=== PATIENT | male | born 1960 | race Caucasian/White ===

== ENCOUNTER 2017-04-05 11:25 | Inpatient (IN) | payer MEDICARE ==
[~2017-04-05] VITALS: Ht 180.3 cm; Wt 74.8 kg
[2017-04-05 12:37] LABS: HEMOGLOBIN 16.2 gm/dl (14.0-17.5); RED BLOOD COUNT 4.85 M/UL (4.20-5.50); WHITE BLOOD COUNT 6.5 K/UL (4.5-11.0)
[2017-04-05 13:01] LABS: BUN/CREATININE RATIO 20 (0-10)
[2017-04-05] MEDS ORDERED: PRAVASTATIN SOD20 MG PO (18:00)
[2017-04-05] MEDS ORDERED: ISOSORBIDE DINI30 MG PO (18:00)
[2017-04-05] MEDS ORDERED: SPIRONOLACTONE25 MG PO (18:01)
[2017-04-05] MEDS ORDERED: COREG 3.125M3.125 MG PO (18:01)
[2017-04-05] MEDS ORDERED: ENTRESTO PO (18:02)
[2017-04-05] MEDS ORDERED: ASPIR-LOW81 MG PO (18:04)
[2017-04-06 04:06] LABS: HEMOGLOBIN 17.3 gm/dl (14.0-17.5); RED BLOOD COUNT 5.23 M/UL (4.20-5.50); WHITE BLOOD COUNT 5.4 K/UL (4.5-11.0)
[2017-04-06 04:29] LABS: BUN/CREATININE RATIO 24 (0-10)
[2017-04-07 05:44] LABS: HEMOGLOBIN 17.5 gm/dl (14.0-17.5); RED BLOOD COUNT 5.18 M/UL (4.20-5.50); WHITE BLOOD COUNT 6.2 K/UL (4.5-11.0)
[2017-04-07 05:57] LABS: BUN/CREATININE RATIO 25 (0-10)
[2017-04-10 04:55] LABS: HEMOGLOBIN 16.7 gm/dl (14.0-17.5); RED BLOOD COUNT 5.02 M/UL (4.20-5.50); WHITE BLOOD COUNT 5.6 K/UL (4.5-11.0)
[2017-04-10 05:13] LABS: BUN/CREATININE RATIO 33 (0-10)
[2017-04-10] MEDS ORDERED: CORDARONE 200M200 MG PO (15:19)
[2017-04-10] MEDS ORDERED: IMDUR ER TAB 6060 MG PO (15:22)
[2017-04-10] MEDS ORDERED: NITROSTAT0.4 MG SL (15:23)
== END 2017-04-10 15:42 | disposition home or self-care (01) | DRG 286 ==
LOC: ER1 11:25 → ZEROF 15:14 → M/S 15:14
PROVIDERS: Emergency Medicine; Internal Medicine; Physician Assistant; ADMIT Family Medicine
PROC: 5A2204Z Restoration of Cardiac Rhythm, Single (ICD-10-PCS; principal; 2017-04-05)
PROC: B2111ZZ Fluoroscopy of Multiple Coronary Arteries using Low Osmolar Contrast (ICD-10-PCS; 2017-04-06)
PROC: 4A023N7 Measurement of Cardiac Sampling and Pressure, Left Heart, Percutaneous Approach (ICD-10-PCS; 2017-04-06)
DX: I25.110 Atherosclerotic heart disease of native coronary artery with unstable angina pectoris (principal); I49.01 Ventricular fibrillation; I50.22 Chronic systolic (congestive) heart failure; Q89.3 Situs inversus; T82.855A Stenosis of coronary artery stent, initial encounter; I11.0 Hypertensive heart disease with heart failure; F17.210 Nicotine dependence, cigarettes, uncomplicated; D69.6 Thrombocytopenia, unspecified; I25.5 Ischemic cardiomyopathy; J44.9 Chronic obstructive pulmonary disease, unspecified; I44.0 Atrioventricular block, first degree; E78.5 Hyperlipidemia, unspecified; H91.90 Unspecified hearing loss, unspecified ear; I25.2 Old myocardial infarction; Z95.5 Presence of coronary angioplasty implant and graft; Z95.1 Presence of aortocoronary bypass graft; Z86.14 Personal history of Methicillin resistant Staphylococcus aureus infection; Z95.810 Presence of automatic (implantable) cardiac defibrillator; Z82.49 Family history of ischemic heart disease and other diseases of the circulatory system; Z72.3 Lack of physical exercise; Z79.82 Long term (current) use of aspirin; Z79.899 Other long term (current) drug therapy
CPT/HCPCS: ECHO; 36415; 71010; 78452; 80048; 80053; 80061; 82550; 82553; 83735; 83874; 84439; 84443; 84484; 85025; 85027; 85610; 85730; 93005; 93306; 94640; 99152; 99285; A9505; C1769; C1894; G0008; J1644; J2250; J3010; J7030; Q2039; Q9963